=== PATIENT | female | born 1985 | race Caucasian/White ===

== ENCOUNTER 2018-05-05 04:30 | Emergency (ER) | payer SELFPAY ==
[~2018-05-05] VITALS: Ht 160 cm; Wt 128.6 kg
[~2018-05-05 04:30] MED LIST: AMOXICILLIN875 MG OR; BACTRIM DS1 TAB PO; CEPHALEXIN500 MG PO; CIPROFLOXACN500 MG PO; CYCLOBENZAPR10 MG PO; FERR SULFATE325 MG PO; IBUPROFEN600 MG PO; NAPROSYN500 MG PO; NO HOME MEDS; PRENATA4 PO; PROBIOTIC1 TAB PO; PROCARDIA XL30 MG PO; TAM75CAP PO
[2018-05-05 05:08] LABS: URINE BILIRUBIN - DIPSTICK NEGATIVE (NEGATIVE); URINE BLOOD DIPSTICK TRACE-LYSED (NEGATIVE); URINE COLOR YELLOW; URINE GLUCOSE - DIPSTICK NEGATIVE (NEGATIVE); URINE KETONE NEGATIVE (NEGATIVE); URINE NITRITE - DIPSTICK NEGATIVE (Negative); URINE PROTEIN - DIPSTICK NEGATIVE (NEG-TRACE); URINE UROBILINOGEN - DIPSTICK 0.2 E.U./dL (0.2)
[2018-05-05 05:10] LABS: INFLUENZA A NONE DETECTED (NONE DETECT); INFLUENZA B NONE DETECTED (NONE DETECT)
[2018-05-05 05:11] LABS: URINE CLARITY HAZY; URINE LEUK ESTERASE MODERATE (NEGATIVE)
[2018-05-05 05:19] LABS: URINE BACTERIA FEW hpf; URINE SQUAMOUS EPITHELIAL CELL FEW EPI/hpf (0-FEW); URINE WBC 20-50 WBC/hpf (0-5)
[2018-05-05] MEDS ORDERED: ROBITUSSIN200 MG/10 PO (05:24)
[2018-05-05] MEDS ORDERED: CEPHALEXIN500 M1 PO (05:24)
[2018-05-05 05:30] VITALS: BP 138/72
== END 2018-05-05 05:30 | disposition home or self-care (01) | DRG 781 ==
LOC: ED 04:30
PROVIDERS: Emergency Medicine
DX: O23.40 Unspecified infection of urinary tract in pregnancy, unspecified trimester (principal); O99.519 Diseases of the respiratory system complicating pregnancy, unspecified trimester; J02.9 Acute pharyngitis, unspecified; Z3A.00 Weeks of gestation of pregnancy not specified

== ENCOUNTER 2019-10-09 18:31 | Emergency (ER) | payer SELFPAY ==
[~2019-10-09] VITALS: Ht 160 cm; Wt 131.2 kg
[~2019-10-09 18:31] MED LIST changes: +CEPHALEXIN500 M1 PO; +ROBITUSSIN200 MG/10 PO
[2019-10-09 19:59] VITALS: BP 130/78
== END 2019-10-09 19:59 | disposition home or self-care (01) | DRG 866 ==
LOC: ED 18:31
DX: B34.9 Viral infection, unspecified (principal)

== ENCOUNTER 2022-10-19 07:33 | Emergency (ER) | payer BC ==
[~2022-10-19] VITALS: Ht 162.6 cm; Wt 137.0 kg
[~2022-10-19 07:33] MED LIST changes: +D3 HIGH POT5000 UNIT PO; +FENOFIBRATE145 MG PO; +HAIR SKIN AND N1 TAB PO; +OMEGA 31000 MG PO; +OMEPRAZOLE DR40 MG PO
[2022-10-19] MEDS ORDERED: AMOXICILLIN500 M2 PO (09:21)
[2022-10-19 09:40] VITALS: BP 137/68
== END 2022-10-19 09:46 | disposition home or self-care (01) | DRG 153 ==
LOC: ED 07:33
DX: H66.92 Otitis media, unspecified, left ear (principal); Z20.822 Contact with and (suspected) exposure to COVID-19

== ENCOUNTER 2023-01-22 09:11 | Emergency (ER) | payer OTHER, BC ==
[~2023-01-22] VITALS: Ht 162.6 cm; Wt 139.0 kg
[~2023-01-22 09:11] MED LIST changes: +AMOXICILLIN500 M2 PO
[2023-01-22 10:57] VITALS: BP 140/81
== END 2023-01-22 11:08 | disposition home or self-care (01) | DRG 313 ==
LOC: ED 09:11
DX: R07.89 Other chest pain (principal); V49.60XA Unspecified car occupant injured in collision with unspecified motor vehicles in traffic accident, initial encounter

== ENCOUNTER 2025-01-09 11:25 | Emergency (ER) | payer BC ==
[~2025-01-09] VITALS: Ht 162.6 cm; Wt 143.0 kg
[2025-01-09 11:30] VITALS: BP 171/76
[2025-01-09] MEDS ORDERED: MECLIZINE HCL 25 MG/TAB PO ONE (11:40)
[2025-01-09 12:01] VITALS: BP 144/63
[2025-01-09 12:08] LABS: BASO% 0.3 % (0-3); EOS% 1.1 % (0-8); IMMATURE GRANULOCYTES 0.1 % (0.0-5.0); LYMPH% 26.4 % (15-41); MEAN CELL VOLUME 88.6 fL CALC (80.0-100.0); MEAN CORPUSCULAR HGB 27.1 pG CALC (26.0-32.0); MEAN CORPUSCULAR HGB CONC 30.6 g/dL CAL (32.0-36.0); MONO% 5.6 % (2-13); NEUT# 6.21 thou/uL (2.00-7.15); NEUT% 66.5 % (42-76); RED BLOOD COUNT 4.57 mill/uL (4.20-5.60); RED CELL DISTRI WIDTH 13.5 % (11.5-15.5)
[2025-01-09 12:09] LABS: HEMATOCRIT 40.5 % (37.0-47.0); HEMOGLOBIN 12.4 g/dl (12.0-16.0)
[2025-01-09 12:16] VITALS: BP 125/58
[2025-01-09 12:21] LABS: CREATININE 0.6 mg/dL (0.5-1.0)
[2025-01-09 12:23] LABS: BILIRUBIN, TOTAL 0.5 mg/dL (0.02-1.3)
[2025-01-09 12:24] LABS: ALBUMIN 3.9 g/dL (3.2-5.0); TOTAL PROTEIN 7.3 g/dL (6.3-8.2)
[2025-01-09 12:30] VITALS: BP 128/69
[2025-01-09 12:45] VITALS: BP 139/73
[2025-01-09] MEDS ORDERED: MECLIZINE 2525 MG PO (12:46)
[2025-01-09 12:51] VITALS: BP 139/73
== END 2025-01-09 12:54 | disposition home or self-care (01) | DRG 149 ==
LOC: ED 11:25
PROVIDERS: Family Medicine
DX: H81.12 Benign paroxysmal vertigo, left ear (principal)